=== PATIENT | male | born 2005 | race Caucasian/White ===

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

== ENCOUNTER 2024-11-22 19:10 | Emergency (ER) | payer BC, SELFPAY | END 2024-11-22 22:36 | disposition home or self-care (01) | LOC: ERS 19:10 | DX: H61.22 Impacted cerumen, left ear (principal); H66.92 Otitis media, unspecified, left ear | CPT/HCPCS: 99283 ==